=== PATIENT | male | born 1975 | race Caucasian/White ===

== ENCOUNTER 2022-10-24 13:18 | Emergency (ER) | payer SELFPAY ==
[~2022-10-24] VITALS: Ht 182.9 cm; Wt 122.5 kg
[2022-10-24 13:28] VITALS: BP 146/97; PULSE 100; RESP 16; TEMP 97.6; O2SAT 96
--- NOTE | 2022-10-24 13:46 | NUR ---
CODE STEMI CALLED, ALERTED [facility], WAITING FOR CARDIOLOGY TO CALL BACK
[2022-10-24] MEDS ORDERED: ASPIRIN 325 MG TAB PO ONE (13:55)
[2022-10-24] MEDS ORDERED: NITROGLYCERIN 0.4 MG TAB SL ONE (13:55)
[2022-10-24 14:09] LABS: BASOPHILS # (AUTO) 0.1 K/uL (0.00-0.22); BASOPHILS % (AUTO) 0.8 % (0.0-2.0); EOSINOPHILS % (AUTO) 0.3 % (0.0-4.0); HEMATOCRIT 45.5 % (36-52); HEMOGLOBIN 15.9 g/dL (12.0-18.0); LYMPHOCYTES # (AUTO) 1.5 K/uL (2.0-11.5); MEAN CORPUSCULAR HEMOGLOBIN 31 pg (27-31); MEAN CORPUSCULAR HGB CONC 35 g/dL (33-37); MEAN CORPUSCULAR VOLUME 88.6 fL (80-94); MONOCYTES % (AUTO) 9.5 % (1.7-9.3); NEUTROPHILS # (AUTO) 7.7 K/uL (1.8-7.7); NEUTROPHILS % (AUTO) 74.4 % (42.2-75.2); PLATELET COUNT (AUTO) 216 K/uL (140-450); RED BLOOD CELL COUNT(AUTO) 5.13 MIL/uL (4.20-6.10); WHITE BLOOD COUNT (AUTO) 10.3 K/uL (4.8-10.8)
--- NOTE | 2022-10-24 14:16 | NUR ---
Ever aguila in [facility] - 10/24/22 at 1449 by KARIE CODE STEMI WAS ACTIVATED , CALLED [facility], WAITING FOR CARDIOLOGY
[2022-10-24 14:19] LABS: PROTHROMBIN TIME 10.1 secs (10.8-13.4)
--- NOTE | 2022-10-24 14:20 | NUR ---
DR [facility] ACCEPTED PT, VARUN EMT TO CALL ALS TRANSPORT
--- NOTE | 2022-10-24 14:21 | NUR ---
PT NOW PAIN FREE, PT AND SPOUSE UPDATED WITH PLAN OF CARE INCLUDING
--- NOTE | 2022-10-24 14:39 | NUR ---
RPT ACCEPTED BY [facility] REPORT GIVEN TO KAVITHA LANTIGUA CN, PT TO [facility] VIA ACLS PROTOCOL
[2022-10-24 14:40] VITALS: BP 137/84; PULSE 103; RESP 24; TEMP 98.4; O2SAT 97
--- NOTE | 2022-10-24 14:44 | NUR ---
PT WAS PAIN FREE PT TRANSP[facility]
[2022-10-24 14:46] LABS: ALBUMIN 3.7 g/dL (3.4-5.0); ANION GAP 11.8 (8-16); CARBON DIOXIDE 29.3 mmol/L (21-32); CREATININE 0.9 mg/dL (0.6-1.3); POTASSIUM 4.1 mmol/L (3.5-5.1); TOTAL BILIRUBIN 0.9 mg/dL (0.0-1.0)
== END 2022-10-24 14:25 | disposition short-term general hospital (02) ==
LOC: MED 13:18
DX: I21.3 ST elevation (STEMI) myocardial infarction of unspecified site (principal); Z79.899 Other long term (current) drug therapy
CPT/HCPCS: 36415; 71045; 80053; 83880; 84484; 85025; 85610; 85730; 93005; 99291; Q0092